=== PATIENT | male | born 2005 | race Caucasian/White ===

== ENCOUNTER 2024-04-05 22:23 | Emergency (ER) | payer BC ==
[2024-04-05] MEDS ORDERED: LORazepam 2 MG/ML SYR.(CARPUJECT) ONE (22:31)
[2024-04-05] MEDS ORDERED: fentaNYL 50 mcg/mL 1 mL Vial ONE (22:31)
== END 2024-04-05 23:41 | disposition home or self-care (01) ==
LOC: ERS 22:23
DX: S43.005A Unspecified dislocation of left shoulder joint, initial encounter (principal); Y93.51 Activity, roller skating (inline) and skateboarding; Y92.830 Public park as the place of occurrence of the external cause
CPT/HCPCS: 23650; 96374; 96375; J2060; J3010